=== PATIENT | female | born 1955 | race Two or more races ===

== ENCOUNTER 2021-08-19 07:18 | Outpatient (CLI) | payer OTHER | END 2021-08-19 07:19 | disposition home or self-care (01) | LOC: NUCLEAR 07:18 | PROVIDERS: ATTEND Specialist | DX: I11.9 Hypertensive heart disease without heart failure (principal); E78.00 Pure hypercholesterolemia, unspecified; E11.9 Type 2 diabetes mellitus without complications; I25.9 Chronic ischemic heart disease, unspecified | CPT/HCPCS: 78452; 93017; A9500 ==